=== PATIENT | male | born 1960 | race Caucasian/White ===

== ENCOUNTER → 2023-08-12 10:17 | Outpatient (REF) | payer BC, SELFPAY | LOC: HWRAD 10:17 | PROVIDERS: ATTENDING PHYSICIAN Thoracic Surgery (Cardiothoracic Vascular Surgery); FAMILY PHYSICIAN Internal Medicine | DX: Q24.5 Malformation of coronary vessels (principal); Z98.890 Other specified postprocedural states | CPT/HCPCS: 71270; Q9967 ==

== ENCOUNTER → 2024-06-30 11:11 | Outpatient (REF) | payer OTHER, SELFPAY | LOC: RAD 11:11 | PROVIDERS: ATTENDING PHYSICIAN Nurse Practitioner Acute Care; FAMILY PHYSICIAN Internal Medicine | DX: Z01.818 Encounter for other preprocedural examination (principal) | CPT/HCPCS: 71270; Q9967 ==